=== PATIENT | male | born 1980 | race Caucasian/White ===

== ENCOUNTER 2017-08-13 00:45 | Emergency (ER) | payer BC ==
[2014-03-14 10:46] VITALS: BP 154/79
[~2017-08-13] VITALS: Ht 177.8 cm; Wt 84.4 kg
[~2017-08-13 00:45] MED LIST: BUPROPION HYDR PO; NEXIUM 40MG40 MG PEG
== END 2017-08-13 04:20 | disposition expired ==
LOC: ED 00:45
DX: S01.402A Unspecified open wound of left cheek and temporomandibular area, initial encounter (principal); I46.9 Cardiac arrest, cause unspecified; S21.109A Unspecified open wound of unspecified front wall of thorax without penetration into thoracic cavity, initial encounter; W34.00XA Accidental discharge from unspecified firearms or gun, initial encounter